=== PATIENT | female | born 1970 | race Caucasian/White ===

== ENCOUNTER 2021-07-29 11:34 | Outpatient (CLI) | payer BC, SELFPAY ==
[2021-07-29 11:46] LABS: Basophils Absolute Auto 0.05 K/mm3 (0.00-0.10); Basophils Percent Auto 0.9 % (0.0-1.0); Eosinophils Absolute Auto 0.16 K/mm3 (0.02-0.50); Eosinophils Percent Auto 2.9 % (1.0-6.0); Hematocrit 44.4 % (35.0-49.0); Immature Granulocyte Absolute 0.01 K/mm3 (0.00-0.00); Immature Granulocyte Percent A 0.2 % (0.0-0.0); Lymphocytes Absolute Auto 0.86 K/mm3 (1.10-4.50); Lymphocytes Percent Auto 15.4 % (18.0-42.0); Mean Corpuscular HGB Conc 33.8 g/dL (32.0-36.0); Mean Corpuscular Hemoglobin 36.2 pg (27.0-31.0); Mean Corpuscular Volume 107.2 fL (78.0-102.0); Mean Platelet Volume 9.6 fl (9.2-11.8); Monocytes Absolute Auto 0.46 K/mm3 (0.10-0.90); Monocytes Percent Auto 8.2 % (2.0-11.0); Neutrophils Percent Auto 72.4 % (50.0-70.0); Platelet Count Result 244 K/mm3 (150-420); Red Blood Count 4.14 M/mm3 (4.20-5.40); Red Cell Distribution Width 12.1 % (11.6-14.4); White Blood Count 5.6 K/mm3 (4.8-10.8)
[2021-07-29 12:20] LABS: Alanine Aminotransferase 119 U/L (14-59); Albumin Level 4.1 g/dL (3.4-5.0); Alkaline Phosphatase 62 U/L (46-116); Anion Gap 9 mmol/L (8-16); Aspartate Amino Transferase 109 U/L (15-37); Blood Urea Nitrogen 7 mg/dL (7-18); Calcium 9.3 mg/dL (8.5-10.1); Carbon Dioxide 29 mmol/L (21-32); Chloride 104 mmol/L (98-108); Cholesterol 269 mg/dL (0-200); Estimated Glomerular Filt Rate > 60; Glucose 107 mg/dL (70-99); HDL Direct 43 mg/dL (40-60); LDL Cholesterol Calculated 200 mg/dL (<130); Osmolality Calculated 292 mOsm/kg (285-295); Potassium 4.7 mmol/L (3.5-5.1); Sodium 142 mmol/L (136-145); Total Protein 6.9 g/dL (6.4-8.2); Triglycerides 130 mg/dL (0-150)
== END 2021-07-29 11:35 | disposition home or self-care (01) ==
LOC: CHSLAB 11:37
PROVIDERS: PCP Nurse Practitioner Family; Visit Provider Nurse Practitioner Family
DX: E78.5 Hyperlipidemia, unspecified (principal); I10 Essential (primary) hypertension
CPT/HCPCS: 36415; 80053; 80061; 85025

== ENCOUNTER 2022-01-26 01:25 | Day surgery (SDC) | payer BC, SELFPAY ==
[2022-01-14 14:15] VITALS: BMI 24.2
[2022-01-26 10:27] VITALS: BP 157/104; PULSE 100; RESP 16; TEMP 36.1; O2SAT 100; BMI 24.9
[2022-01-26] MEDS: LACTATED RINGERS 1,000 ML 150 ML IV CONT (10:30)
--- NOTE | 2022-01-26 11:10 | P.PNAN_ITS ---
Anes - Initial Pre Proc Eval Procedure: Operation Date: 01/26/22 11:00 Proposed Procedures p Screening Colonoscopy - Nicholas King MD Date/Time: 01/26/22 11:10 Surgeon: Nicholas King MD Pre Op Diagnosis: neoplasm screening Patient Data Age: 51 Gender: F Height: 1.68 m Weight: 70 kg Last Vital Signs Temp 96.9 F L 01/26/22 10:27 Pulse 100 01/26/22 10:27 Resp 16 01/26/22 10:27 BP 157/104 H 01/26/22 10:27 Pulse Ox 100 01/26/22 10:27 Allergies Allergy/AdvReac Type Severity Reaction Status Date / Time oxycodone Allergy Severe rash Verified 01/26/22 10:26 Home Medications Medication Instructions Recorded Confirmed Type loratadine 10 mg tablet 10 mg PO DAILY 10/13/19 01/14/22 History albuterol sulfate 90 mcg/actuation 2 puff INHALATION QID PRN #8.5 g 07/28/21 01/14/22 Rx aerosol inhaler lisinopril 5 mg tablet 5 mg PO DAILY #90 tablet 07/28/21 01/14/22 Rx multivitamin 1 tablet PO DAILY 07/28/21 01/14/22 History lovastatin 40 mg tablet 40 mg PO DAILY #90 tablet 07/30/21 Rx Patient hx anesthesia problems: none Family hx anesthesia problems: none Results Review: All pre-operative results and documents have been reviewed as part of the pre-operative evaluation. [facility], [facility] Past Medical History Medical History (Updated 07/28/21 @ 13:50 by Sofie Moreno NP) Anemia, unspecified Essential hypertension Fibroid uterus Fracture of thumb, left, closed GERD without esophagitis Hyperlipidemia Hypothyroidism Menometrorrhagia Surgical History Surgical History History of bilateral salpingectomy Hx of rotator cuff surgery Left shoulder S/P laparoscopic hysterectomy Family History Family History Mother Hypothyroidism Father Cancer Sibling Diabetes mellitus Social History Social History (Updated 07/28/21 @ 12:46 by Yanelis Molina MA) Smoking status: Never smoker Alcohol intake: current Drinks per week: 30 Alcohol use details: 5 glasses of wine daily Substance use: never Substance use type: does not use Living arrangements: with family Additional living arrangements comments: Additional occupation/education comments: housewife Gender identity (if verbalized by the patient): Female Spiritual care concerns: No Anes - Eval Final PreProcedure Day of Procedure 01/26/22 11:10 Patient weight: normal Heart: regular rate and rhythm Lungs: clear to auscultation Airway: Mallampati scale class II Neurological: alert and oriented Last oral intake: >/= 8 hours ASA classification: II Emergent: no Anesthetic plan: proceed Anesthesia type and monitoring: general GIVS and standard monitoring Results Review: All pre-operative results and documents have been reviewed as part of the pre-operative evaluation. Informed Consent: The patient's anesthetic plan and its attendant risks and benefits were discussed with the patient/family/POA. Questions were solicited and answers provided to the satisfaction of the patient/family/POA.
--- NOTE | 2022-01-26 11:11 | PM.HPGS ---
History of Present Illness History of Present Illness Consent: Risks, benefits, and alternatives have been discussed and questions answered. Patient agrees to proceed with procedure. Chief complaint: neoplasm screening Narrative: Daisy No is a 51 year old female here for first screening colonoscopy Review of Systems Constitutional: Constitutional: Denies headache(s) and Denies weakness Eyes: Eyes: Denies blurry vision ENT: Reports Normal hearing present, Denies headache(s) and Denies neck pain Cardiovascular: Cardiovascular: Denies chest pain and Denies dyspnea Respiratory: Respiratory: Denies dyspnea Gastrointestinal: Gastrointestinal: Reports no additional gastrointestinal complaints Genitourinary: Genitourinary: Denies dysuria Musculoskeletal: Musculoskeletal: Denies neck pain Integumentary/Breasts: Skin/Breast: Denies dry skin Neurologic: Reports Normal hearing present, Denies headache(s) and Denies weakness Psychiatric: Psychiatric: Denies anxiety Endocrine: Endocrine: Denies change in body appearance Hematologic/Lymphatic: Hematologic/Lymphatic: Denies easy bleeding Allergic/Immunologic: Allergic/Immunologic: Denies urticaria PMFSH Past Medical History Medical History (Updated 07/28/21 @ 13:50 by Sofie Moreno NP) Anemia, unspecified Essential hypertension Fibroid uterus Fracture of thumb, left, closed GERD without esophagitis Hyperlipidemia Hypothyroidism Menometrorrhagia Surgical History Surgical History History of bilateral salpingectomy Hx of rotator cuff surgery Left shoulder S/P laparoscopic hysterectomy Family History Family History Mother Hypothyroidism Father Cancer Sibling Diabetes mellitus Social History Social History (Updated 07/28/21 @ 12:46 by Yanelis Molina MA) Smoking status: Never smoker Alcohol intake: current Drinks per week: 30 Alcohol use details: 5 glasses of wine daily Substance use: never Substance use type: does not use Living arrangements: with family Additional living arrangements comments: Additional occupation/education comments: housewife Gender identity (if verbalized by the patient): Female Spiritual care concerns: No Meds Home Medications and Allergies Home Medications Medication Instructions Recorded Confirmed Type loratadine 10 mg tablet 10 mg PO DAILY 10/13/19 01/14/22 History albuterol sulfate 90 mcg/actuation 2 puff INHALATION QID PRN #8.5 g 07/28/21 01/14/22 Rx aerosol inhaler lisinopril 5 mg tablet 5 mg PO DAILY #90 tablet 07/28/21 01/14/22 Rx multivitamin 1 tablet PO DAILY 07/28/21 01/14/22 History lovastatin 40 mg tablet 40 mg PO DAILY #90 tablet 07/30/21 Rx Allergies Allergy/AdvReac Type Severity Reaction Status Date / Time oxycodone Allergy Severe rash Verified 01/26/22 10:26 Vital Signs Vital Signs - 24 hr 01/26/22 10:27 Temperature 96.9 F L Pulse Rate 100 Respiratory Rate 16 Blood Pressure 157/104 H Pulse Oximetry 100 Exam Const: General: comfortable and no acute distress HENMT: General nose exam: Normal nares present Eyes: General: appearance normal, both eyes and all related structures Neck: Neck: no JVD Resp: Auscultation: clear to auscultation bilaterally Cardio: Rate: regular rate Rhythm: regular rhythm GI: Inspection: non-distended GI Palp: Yes Soft to palpation Skin: General skin exam: normal color Neuro: General: gait normal Speech: normal speech Extrem: General: normal to inspection Psych: Mental Status: mental status grossly normal Assessment and Plan Assessment and plan (1) Screening for malignant neoplasm of colon: Code(s): Z12.11 - Encounter for screening for malignant neoplasm of colon Status: Acute Assessment and Plan: colonoscopy
[2022-01-26 11:42] VITALS: BP 118/77; PULSE 88; RESP 19; O2SAT 100
[2022-01-26 11:52] VITALS: BP 107/73; PULSE 69; RESP 21; O2SAT 100
[2022-01-26 12:02] VITALS: BP 115/82; PULSE 67; RESP 19; O2SAT 100
== END 2022-01-26 12:06 | disposition home or self-care (01) ==
PROVIDERS: PCP Nurse Practitioner Family; Visit Provider Internal Medicine Gastroenterology
PROC: 0DJD8ZZ Inspection of Lower Intestinal Tract, Via Natural or Artificial Opening Endoscopic (ICD-10-PCS; CPT 45378; principal; 2022-01-26 11:00)
DX: Z12.11 Encounter for screening for malignant neoplasm of colon (principal); C18.7 Malignant neoplasm of sigmoid colon; D12.4 Benign neoplasm of descending colon; D64.9 Anemia, unspecified; I10 Essential (primary) hypertension; K21.9 Gastro-esophageal reflux disease without esophagitis; E78.5 Hyperlipidemia, unspecified; E03.9 Hypothyroidism, unspecified; D25.9 Leiomyoma of uterus, unspecified; Z79.51 Long term (current) use of inhaled steroids
CPT/HCPCS: 45385; 88305; J2704; J7120

== ENCOUNTER 2022-06-12 10:56 | Outpatient (CLI) | payer BC, SELFPAY ==
[2022-06-12 18:52] LABS: Basophils Absolute Auto 0.1 K/mm3 (0.0-0.1); Basophils Percent Auto 0.9 % (0.2-1.2); Eosinophils Absolute Auto 0.2 K/mm3 (0-0.3); Eosinophils Percent Auto 3.6 % (0-4.4); Hematocrit 44.6 % (37.0-47.0); Hemoglobin 14.7 g/dL (12.0-15.0); Immature Granulocyte Absolute 0.02 K/mm3 (0.00-0.031); Immature Granulocyte Percent A 0.4 % (0-0.5); Lymphocytes Absolute Auto 0.89 K/mm3 (0.9-3.2); Lymphocytes Percent Auto 15.9 % (18.3-44.2); Mean Corpuscular Hemoglobin 33.6 pg (26-34); Mean Corpuscular Volume 101.8 fl (80-100); Monocytes Absolute Auto 0.5 K/mm3 (0.1-0.6); Monocytes Percent Auto 9.3 % (2.6-8.5); Neutrophils Absolute Auto 3.9 K/mm3 (1.3-6.7); Neutrophils Percent Auto 69.9 % (45.5-73.1); Platelet Count Result 214 k/mm3 (150-375); Red Blood Count 4.38 M/mm3 (4.2-5.4); Red Cell Distribution Width 12.3 % (11.5-14.5); White Blood Count 5.6 K/mm3 (4.5-10.0)
[2022-06-12 19:36] LABS: Alanine Aminotransferase 91 U/L (6-35); Albumin Level 4.5 g/dL (3.5-5.1); Alkaline Phosphatase 69 U/L (38-126); Anion Gap 12 mmol/L (8-16); Aspartate Amino Transferase 114 U/L (14-36); Bilirubin,Total 1.1 mg/dL (0.2-1.3); Blood Urea Nitrogen 9 mg/dL (7-17); Calcium 9.8 mg/dL (8.4-10.2); Carbon Dioxide 28 mmol/L (22-30); Chloride 98 mmol/L (98-107); Cholesterol 256 mg/dL (0-200); Estimated Glomerular Filt Rate > 60; Glucose 98 mg/dL (65-110); HDL Direct 52 mg/dL; Potassium 4.4 mmol/L (3.4-5.0); Sodium 138 mmol/L (137-145); Triglycerides 138 mg/dL (<150)
[2022-06-12 19:47] LABS: LDL Cholesterol Direct 180 mg/dL
[2022-06-12 19:52] LABS: Vitamin D 25 Hydroxy 66.6 ng/mL
== END 2022-06-12 10:57 | disposition home or self-care (01) ==
LOC: ANHGOSHLAB 10:57
PROVIDERS: PCP Nurse Practitioner Family; Visit Provider Family Medicine
DX: E78.5 Hyperlipidemia, unspecified (principal); I10 Essential (primary) hypertension; E55.9 Vitamin D deficiency, unspecified; E53.8 Deficiency of other specified B group vitamins; R73.9 Hyperglycemia, unspecified
CPT/HCPCS: 36415; 80053; 80061; 82306; 82607; 83036; 84443; 85025

== ENCOUNTER 2022-07-29 11:46 | Outpatient (CLI) | payer BC, SELFPAY ==
[2022-07-29 18:38] LABS: Alanine Aminotransferase 49 U/L (6-35); Albumin Level 4.6 g/dL (3.5-5.1); Alkaline Phosphatase 64 U/L (38-126); Anion Gap 16 mmol/L (8-16); Aspartate Amino Transferase 56 U/L (14-36); Bilirubin,Total 0.8 mg/dL (0.2-1.3); Blood Urea Nitrogen 8 mg/dL (7-17); Calcium 9.4 mg/dL (8.4-10.2); Carbon Dioxide 27 mmol/L (22-30); Chloride 101 mmol/L (98-107); Estimated Glomerular Filt Rate > 60; Glucose 92 mg/dL (65-110); Potassium 4.4 mmol/L (3.4-5.0); Sodium 144 mmol/L (137-145)
== END 2022-07-29 11:47 | disposition home or self-care (01) ==
LOC: ANHGOSHLAB 11:48
PROVIDERS: PCP Family Medicine; Visit Provider Family Medicine
DX: R79.89 Other specified abnormal findings of blood chemistry (principal)
CPT/HCPCS: 36415; 80053

== ENCOUNTER → 2022-08-20 12:48 | Outpatient (CLI) | payer BC, SELFPAY ==
--- NOTE | ~2022-08-20 | MM_ITS ---
EXAMINATION: MM screening jordan BI w dash HISTORY: Screening TECHNIQUE: Craniocaudal and mediolateral oblique 3-D tomosynthesis images were obtained and synthetic 2-D images were generated. CAD analysis was submitted and interpreted. COMPARISON: Comparison to multiple prior studies sequentially, with oldest reviewed study dated 10/02. BREAST PARENCHYMAL COMPOSITION: The breasts are heterogeneously dense, which may obscure small masses FINDINGS: There is no evidence of suspicious mass, calcification, or architectural distortion to sugg est malignancy in either breast. There has been no suspicious interval change. IMPRESSION: 1. No mammographic evidence of malignancy. 2. Recommend routine screening mammography in one year. BI-RADS Category 1: Negative Reviewed, dictated and finalized at location A.
== END ==
PROVIDERS: PCP Family Medicine; Visit Provider Family Medicine
DX: Z12.31 Encounter for screening mammogram for malignant neoplasm of breast (principal)
CPT/HCPCS: 77063; 77067

== ENCOUNTER → 2022-10-09 11:12 | Outpatient (CLI) | payer BC, SELFPAY ==
--- NOTE | ~2022-10-09 | US_ITS ---
US right upper quadrant INDICATION: Elevated liver function tests PROCEDURE: Realtime right upper abdominal ultrasound. COMPARISON: No prior studies for comparison. FINDINGS: The pancreas is normal without focal mass or pancreatic ductal dilation. Echotexture is in creased, consistent with fatty infiltration. There is normal directional flow in the portal vein. The gallbladder is normal without stones, gallbladder wall thickening or pericholecystic fluid. Comm on bile duct measures 4 mm. No sonographic Han's sign. IMPRESSION: 1: Hepatic steatosis. Reviewed, dictated and finalized at location A. NISTRATIVE SUPPORT ASSISTANT IMPRESSION: 1: Hepatic steatosis.
== END ==
PROVIDERS: PCP Family Medicine; Visit Provider Family Medicine
DX: R79.89 Other specified abnormal findings of blood chemistry (principal); K76.0 Fatty (change of) liver, not elsewhere classified
CPT/HCPCS: 36415; 76705; 80053; 80061

== ENCOUNTER 2022-10-09 11:29 | Outpatient (CLI) | payer BC, SELFPAY ==
[2022-10-09 19:33] LABS: Alanine Aminotransferase 56 U/L (6-35); Albumin Level 4.8 g/dL (3.5-5.1); Alkaline Phosphatase 59 U/L (38-126); Anion Gap 10 mmol/L (8-16); Aspartate Amino Transferase 62 U/L (14-36); Bilirubin,Total 0.7 mg/dL (0.2-1.3); Blood Urea Nitrogen 9 mg/dL (7-17); Calcium 9.9 mg/dL (8.4-10.2); Carbon Dioxide 30 mmol/L (22-30); Chloride 104 mmol/L (98-107); Cholesterol 216 mg/dL (0-200); Estimated Glomerular Filt Rate > 60; Glucose 95 mg/dL (65-110); HDL Direct 58 mg/dL; Potassium 4.4 mmol/L (3.4-5.0); Sodium 144 mmol/L (137-145); Triglycerides 135 mg/dL (<150)
[2022-10-09 19:44] LABS: LDL Cholesterol Direct 125 mg/dL
== END 2022-10-09 11:30 | disposition home or self-care (01) ==
LOC: ANHGOSHLAB 11:30
PROVIDERS: PCP Family Medicine; Visit Provider Family Medicine
DX: E78.5 Hyperlipidemia, unspecified (principal); I10 Essential (primary) hypertension; Z79.899 Other long term (current) drug therapy
CPT/HCPCS: 36415; 80053; 80061

== ENCOUNTER 2023-03-09 02:23 | Day surgery (SDC) | payer BC, SELFPAY ==
[2023-02-24 15:35] VITALS: BMI 23.1
[2023-03-09 08:38] VITALS: BP 161/91; PULSE 67; RESP 18; TEMP 36.1; O2SAT 99; BMI 23.7
[2023-03-09] MEDS: LACTATED RINGERS 1,000 ML 150 ML IV CONT (08:53)
--- NOTE | 2023-03-09 09:21 | WPDANESEPPF ---
Anes - Initial Pre Proc Eval Procedure: Operation Date: 03/09/23 10:00 Proposed Procedures p Colonoscopy - Nicholas King MD Date/Time: 03/09/23 09:21 Surgeon: Nicholas King MD Pre Op Diagnosis: hx colon ca Patient Data Age: 52 Gender: F Height: 1.68 m Weight: 66.7 kg Last Vital Signs Temp 97.0 F L 03/09/23 08:38 Pulse 67 03/09/23 08:38 Resp 18 03/09/23 08:38 BP 161/91 H 03/09/23 08:38 Pulse Ox 99 03/09/23 08:38 O2 Del Method Room Air 03/09/23 08:38 Allergies Allergy/AdvReac Type Severity Reaction Status Date / Time oxycodone Allergy Severe rash Verified 03/09/23 08:44 Home Medications Medication Instructions Recorded Confirmed Type loratadine 10 mg tablet (Allergy 10 mg PO DAILY 10/13/19 03/09/23 History Relief (loratadine)) albuterol sulfate 90 mcg/actuation 2 puff inhalation QID PRN 07/28/21 03/09/23 Rx aerosol inhaler (ProAir HFA) Shortness Of Breath #8.5 grams multivitamin 1 tablet PO DAILY 07/28/21 03/09/23 History omeprazole 20 mg capsule,delayed 20 mg PO DAILY PRN Heartburn 06/09/22 03/09/23 History release tumeric 100 mg-dre 150 mg-olive 1 cap PO .QD 10/06/22 03/09/23 History 50 mg-oreg 150 mg-caprylate capsule atorvastatin 20 mg tablet (Lipitor) 20 mg PO QHS #90 tabs 12/07/22 03/09/23 Rx ondansetron 4 mg disintegrating 4 mg PO Q8H PRN nausea and 02/10/23 03/09/23 Rx tablet vomiting #10 tabs Patient hx anesthesia problems: none Family hx anesthesia problems: none Results Review: All pre-operative results and documents have been reviewed as part of the pre-operative evaluation. [facility] Past Medical History Medical History Cancer of sigmoid Elevated LFTs Environmental allergies Essential hypertension Fibroid uterus Fracture of thumb, left, closed GERD without esophagitis History of colon cancer Hyperlipidemia Menometrorrhagia Vitamin B12 deficiency Surgical History Surgical History History of arthroscopic knee surgery (~1982) Right History of colon resection (~03/05/22) sigmoid resection History of surgical procedure on eye proper using laser (~2016) Right Hx of rotator cuff surgery (~08/08/15) Left shoulder S/P laparoscopic hysterectomy (~11/24/19) Family History Family History Mother Hypothyroidism Father Cancer Sibling Diabetes mellitus Social History Social History (System 01/21/23 @ 15:46 by Rowan Mark) Smoking status: Never smoker Alcohol intake: current Drinks per week: 25 Alcohol use details: wine nightly Substance use: never Substance use type: does not use Lack of Transportation: No Lack of Food: Never True Current Housing: I Have Housing Concerned About Future Housing: No Difficulty Paying Gas/Electric Bills: No Difficulty Paying for Meds: No Currently Unemployed: No Education: Master's Degree or Higher Difficulty w/ Childcare or Family Care: No Living arrangements: with family Additional living arrangements comments: Additional occupation/education comments: housewife Gender identity (if verbalized by the patient): Female Sexual Orientation (if Verbalized by the Patient): Straight or Heterosexual Spiritual care concerns: No Agree to blood products: Yes Anes - Eval Final PreProcedure Day of Procedure 03/09/23 09:22 Patient weight: normal Heart: regular rate and rhythm Lungs: clear to auscultation Airway: Mallampati scale class II Neurological: alert and oriented Last oral intake: >/= 8 hours ASA classification: III Emergent: no Anesthetic plan: proceed Anesthesia type and monitoring: general GIVS and standard monitoring Results Review: All pre-operative results and documents have been reviewed as part of the pre-operative evaluation.
--- NOTE | 2023-03-09 09:25 | PM.HPGS ---
History of Present Illness History of Present Illness Consent: Risks, benefits, and alternatives have been discussed and questions answered. Patient agrees to proceed with procedure. Chief complaint: hx colon ca Narrative: Daisy No is a 52 year old female 12/2021 found to have sigmoid cancer s/p surgery Review of Systems Constitutional: Constitutional: Denies headache(s) and Denies weakness Eyes: Eyes: Denies blurry vision ENT: Reports Normal hearing present, Denies headache(s) and Denies neck pain Cardiovascular: Cardiovascular: Denies chest pain and Denies dyspnea Respiratory: Respiratory: Denies dyspnea Gastrointestinal: Gastrointestinal: Reports no additional gastrointestinal complaints Genitourinary: Genitourinary: Denies dysuria Musculoskeletal: Musculoskeletal: Denies neck pain Integumentary/Breasts: Skin/Breast: Denies dry skin Neurologic: Reports Normal hearing present, Denies headache(s) and Denies weakness Psychiatric: Psychiatric: Denies anxiety Endocrine: Endocrine: Denies change in body appearance Hematologic/Lymphatic: Hematologic/Lymphatic: Denies easy bleeding Allergic/Immunologic: Allergic/Immunologic: Denies urticaria PMFSH Past Medical History Medical History Cancer of sigmoid Elevated LFTs Environmental allergies Essential hypertension Fibroid uterus Fracture of thumb, left, closed GERD without esophagitis History of colon cancer Hyperlipidemia Menometrorrhagia Vitamin B12 deficiency Surgical History Surgical History History of arthroscopic knee surgery (~1982) Right History of colon resection (~03/05/22) sigmoid resection History of surgical procedure on eye proper using laser (~2016) Right Hx of rotator cuff surgery (~08/08/15) Left shoulder S/P laparoscopic hysterectomy (~11/24/19) Family History Family History Mother Hypothyroidism Father Cancer Sibling Diabetes mellitus Social History Social History (System 01/21/23 @ 15:46 by Rowan Mark) Smoking status: Never smoker Alcohol intake: current Drinks per week: 25 Alcohol use details: wine nightly Substance use: never Substance use type: does not use Lack of Transportation: No Lack of Food: Never True Current Housing: I Have Housing Concerned About Future Housing: No Difficulty Paying Gas/Electric Bills: No Difficulty Paying for Meds: No Currently Unemployed: No Education: Master's Degree or Higher Difficulty w/ Childcare or Family Care: No Living arrangements: with family Additional living arrangements comments: Additional occupation/education comments: housewife Gender identity (if verbalized by the patient): Female Sexual Orientation (if Verbalized by the Patient): Straight or Heterosexual Spiritual care concerns: No Agree to blood products: Yes Meds Home Medications and Allergies Home Medications Medication Instructions Recorded Confirmed Type loratadine 10 mg tablet (Allergy 10 mg PO DAILY 10/13/19 03/09/23 History Relief (loratadine)) albuterol sulfate 90 mcg/actuation 2 puff inhalation QID PRN 07/28/21 03/09/23 Rx aerosol inhaler (ProAir HFA) Shortness Of Breath #8.5 grams multivitamin 1 tablet PO DAILY 07/28/21 03/09/23 History omeprazole 20 mg capsule,delayed 20 mg PO DAILY PRN Heartburn 06/09/22 03/09/23 History release tumeric 100 mg-dre 150 mg-olive 1 cap PO .QD 10/06/22 03/09/23 History 50 mg-oreg 150 mg-caprylate capsule atorvastatin 20 mg tablet (Lipitor) 20 mg PO QHS #90 tabs 12/07/22 03/09/23 Rx ondansetron 4 mg disintegrating 4 mg PO Q8H PRN nausea and 02/10/23 03/09/23 Rx tablet vomiting #10 tabs Allergies Allergy/AdvReac Type Severity Reaction Status Date / Time oxycodone Allergy Severe rash Verified
[2023-03-09 09:50] VITALS: BP 123/87; PULSE 84; RESP 22; O2SAT 97
[2023-03-09 10:00] VITALS: BP 134/92; PULSE 70; RESP 20; O2SAT 98
[2023-03-09 10:10] VITALS: BP 130/91; PULSE 72; RESP 20; O2SAT 100
== END 2023-03-09 10:18 | disposition home or self-care (01) ==
PROVIDERS: PCP Family Medicine; Visit Provider Internal Medicine Gastroenterology
PROC: 0DJD8ZZ Inspection of Lower Intestinal Tract, Via Natural or Artificial Opening Endoscopic (ICD-10-PCS; CPT 45378; principal; 2023-03-09 10:00)
DX: Z08 Encounter for follow-up examination after completed treatment for malignant neoplasm (principal); K63.5 Polyp of colon; Z85.038 Personal history of other malignant neoplasm of large intestine; Z98.0 Intestinal bypass and anastomosis status; Z90.49 Acquired absence of other specified parts of digestive tract; I10 Essential (primary) hypertension; K21.9 Gastro-esophageal reflux disease without esophagitis; E78.5 Hyperlipidemia, unspecified; Z79.51 Long term (current) use of inhaled steroids
CPT/HCPCS: 45385; 88305; J2704; J7120

== ENCOUNTER 2023-06-21 11:19 | Outpatient (CLI) | payer BC, SELFPAY ==
[2023-06-21 18:08] LABS: Basophils Absolute Auto 0.1 K/mm3 (0.0-0.1); Basophils Percent Auto 1.1 % (0.2-1.2); Eosinophils Absolute Auto 0.3 K/mm3 (0-0.3); Eosinophils Percent Auto 6.3 % (0-4.4); Hematocrit 43.2 % (37.0-47.0); Immature Granulocyte Absolute 0.02 K/mm3 (0.00-0.031); Immature Granulocyte Percent A 0.4 % (0-0.5); Lymphocytes Absolute Auto 0.83 K/mm3 (0.9-3.2); Lymphocytes Percent Auto 17.9 % (18.3-44.2); Mean Corpuscular HGB Conc 32.4 g/dl (32-36); Mean Corpuscular Hemoglobin 33.3 pg (26-34); Mean Corpuscular Volume 102.9 fl (80-100); Mean Platelet Volume 10.4 fl (7.4-10.4); Monocytes Absolute Auto 0.3 K/mm3 (0.1-0.6); Monocytes Percent Auto 7.3 % (2.6-8.5); Neutrophils Absolute Auto 3.1 K/mm3 (1.3-6.7); Platelet Count Result 215 k/mm3 (150-375); White Blood Count 4.6 K/mm3 (4.5-10.0)
[2023-06-21 18:27] LABS: Alanine Aminotransferase 108 U/L (6-35); Albumin Level 4.8 g/dL (3.5-5.1); Alkaline Phosphatase 73 U/L (38-126); Anion Gap 6 mmol/L (8-16); Aspartate Amino Transferase 150 U/L (14-36); Bilirubin,Total 0.7 mg/dL (0.2-1.3); Blood Urea Nitrogen 8 mg/dL (7-17); Calcium 9.4 mg/dL (8.4-10.2); Carbon Dioxide 31 mmol/L (22-30); Chloride 104 mmol/L (98-107); Cholesterol 214 mg/dL (0-200); Estimated Glomerular Filt Rate > 60; Glucose 93 mg/dL (65-110); HDL Direct 57 mg/dL; Potassium 4.6 mmol/L (3.4-5.0); Sodium 141 mmol/L (137-145); Triglycerides 115 mg/dL (<150)
[2023-06-21 18:37] LABS: LDL Cholesterol Direct 132 mg/dL
[2023-06-21 18:58] LABS: Vitamin D 25 Hydroxy 51.7 ng/mL
== END 2023-06-21 11:20 | disposition home or self-care (01) ==
LOC: ANHGOSHLAB 11:21
PROVIDERS: PCP Family Medicine; Visit Provider Family Medicine
DX: Z00.00 Encounter for general adult medical examination without abnormal findings (principal); I10 Essential (primary) hypertension; E53.8 Deficiency of other specified B group vitamins; E55.9 Vitamin D deficiency, unspecified; E78.5 Hyperlipidemia, unspecified
CPT/HCPCS: 36415; 80053; 80061; 82306; 82607; 84439; 84443; 84480; 85025

== ENCOUNTER 2023-08-26 08:43 | Outpatient (CLI) | payer BC, SELFPAY ==
[2023-08-26 19:43] LABS: Alanine Aminotransferase 33 U/L (6-35); Albumin Level 4.5 g/dL (3.5-5.1); Alkaline Phosphatase 58 U/L (38-126); Aspartate Amino Transferase 41 U/L (14-36); Bilirubin,Total 1.2 mg/dL (0.2-1.3)
== END 2023-08-26 08:44 | disposition home or self-care (01) ==
LOC: ANHGOSHLAB 08:44
PROVIDERS: PCP Family Medicine; Visit Provider Family Medicine
DX: R79.89 Other specified abnormal findings of blood chemistry (principal)
CPT/HCPCS: 36415; 80076

== ENCOUNTER 2023-09-09 08:08 | Outpatient (CLI) | payer BC, SELFPAY ==
--- NOTE | ~2023-09-09 | MM_ITS ---
EXAMINATION: MM screening jordan BI w dash HISTORY: Screening mammogram TECHNIQUE: Craniocaudal and mediolateral oblique 3-D tomosynthesis images were obtained and synthetic 2-D images were generated. CAD analysis was submitted and interpreted. COMPARISON: 08/20/2022, 10/20/2019 BREAST PARENCHYMAL COMPOSITION:The breasts are heterogeneously dense, which may obscure small masses. FINDINGS: No suspicious mass, calcification, or architectural distortion are identified in either monica ast to suggest malignancy. There has been no suspicious interval change. IMPRESSION: No mammographic evidence of malignancy. Recommend routine screening mammography in one year. BI-RADS Category 1: Negative Reviewed, dictated and finalized at location M.
== END 2023-09-09 08:09 | disposition home or self-care (01) ==
LOC: CHSIMG 08:09
PROVIDERS: PCP Family Medicine; Visit Provider Family Medicine
DX: Z12.31 Encounter for screening mammogram for malignant neoplasm of breast (principal)
CPT/HCPCS: 77063; 77067

== ENCOUNTER 2024-06-08 11:05 | Outpatient (CLI) | payer BC, SELFPAY ==
[2024-06-08 12:55] LABS: Basophils Absolute Auto 0.1 K/mm3 (0.0-0.1); Basophils Percent Auto 1.5 % (0.2-1.2); Eosinophils Absolute Auto 0.5 K/mm3 (0-0.3); Eosinophils Percent Auto 10.2 % (0-4.4); Hematocrit 43.2 % (37.0-47.0); Hemoglobin 14.5 g/dL (12.0-15.0); Immature Granulocyte Absolute 0.02 K/mm3 (0.00-0.031); Immature Granulocyte Percent A 0.4 % (0-0.5); Lymphocytes Absolute Auto 0.92 K/mm3 (0.9-3.2); Mean Corpuscular HGB Conc 33.6 g/dl (32-36); Mean Corpuscular Hemoglobin 33.5 pg (26-34); Mean Corpuscular Volume 99.8 fl (80-100); Mean Platelet Volume 10.2 fl (7.4-10.4); Monocytes Absolute Auto 0.4 K/mm3 (0.1-0.6); Monocytes Percent Auto 8.1 % (2.6-8.5); Neutrophils Absolute Auto 2.7 K/mm3 (1.3-6.7); Neutrophils Percent Auto 59.8 % (45.5-73.1); Platelet Count Result 233 k/mm3 (150-375); Red Blood Count 4.33 M/mm3 (4.2-5.4); Red Cell Distribution Width 12.8 % (11.5-14.5); White Blood Count 4.6 K/mm3 (4.5-10.0)
[2024-06-08 14:08] LABS: Vitamin D 25 Hydroxy 38.5 ng/mL
[2024-06-08 14:24] LABS: Alanine Aminotransferase 73 U/L (6-35); Albumin Level 4.9 g/dL (3.5-5.1); Alkaline Phosphatase 69 U/L (38-126); Anion Gap 11 mmol/L (4-12); Aspartate Amino Transferase 85 U/L (14-36); Bilirubin,Total 1.3 mg/dL (0.2-1.3); Blood Urea Nitrogen 10 mg/dL (7-17); Calcium 9.6 mg/dL (8.4-10.2); Carbon Dioxide 29 mmol/L (22-30); Chloride 102 mmol/L (98-107); Cholesterol 208 mg/dL (0-200); Estimated Glomerular Filt Rate > 60; Glucose 99 mg/dL (65-110); HDL Direct 66 mg/dL; Potassium 4.5 mmol/L (3.4-5.0); Sodium 142 mmol/L (137-145); Triglycerides 139 mg/dL (<150)
[2024-06-08 14:35] LABS: LDL Cholesterol Direct 118 mg/dL
== END 2024-06-08 11:06 | disposition home or self-care (01) ==
LOC: ANHGOSHLAB 11:06
PROVIDERS: PCP Family Medicine; Visit Provider Family Medicine
DX: E53.8 Deficiency of other specified B group vitamins (principal); I10 Essential (primary) hypertension; E78.5 Hyperlipidemia, unspecified; E55.9 Vitamin D deficiency, unspecified; Z00.00 Encounter for general adult medical examination without abnormal findings
CPT/HCPCS: 36415; 80053; 80061; 82306; 82607; 84443; 85025

== ENCOUNTER 2024-07-18 10:28 | Outpatient (CLI) | payer BC, SELFPAY ==
[2024-07-18 14:31] LABS: Alanine Aminotransferase 75 U/L (6-35); Albumin Level 4.4 g/dL (3.5-5.1); Alkaline Phosphatase 64 U/L (38-126); Anion Gap 9 mmol/L (4-12); Aspartate Amino Transferase 92 U/L (14-36); Bilirubin,Total 1.1 mg/dL (0.2-1.3); Blood Urea Nitrogen 9 mg/dL (7-17); Calcium 9.6 mg/dL (8.4-10.2); Carbon Dioxide 29 mmol/L (22-30); Chloride 101 mmol/L (98-107); Estimated Glomerular Filt Rate > 60; Glucose 96 mg/dL (65-110); Potassium 4.2 mmol/L (3.4-5.0); Sodium 139 mmol/L (137-145)
== END 2024-07-18 10:29 | disposition home or self-care (01) ==
LOC: ANHGOSHLAB 10:29
PROVIDERS: PCP Family Medicine; Visit Provider Family Medicine
DX: R79.89 Other specified abnormal findings of blood chemistry (principal); I10 Essential (primary) hypertension
CPT/HCPCS: 36415; 80053

== ENCOUNTER 2024-08-31 14:49 | Emergency (ER) | payer BC, SELFPAY ==
[2024-08-31 15:06] VITALS: BP 151/93; PULSE 75; RESP 16; TEMP 36.4; O2SAT 100
--- NOTE | 2024-08-31 15:17 | ED_ITS ---
HPI - URI/Sore Throat General Chief Complaint: Upper Respiratory Infection Stated Complaint: Sinus Infection Time Seen by Provider: 08/31/24 15:20 Source: patient, RN notes reviewed and old records reviewed Mode of arrival: ambulatory Limitations: no limitations History of Present Illness HPI Narrative: 53-year-old female to Express Care with complaint of sinus congestion and pressure, postnasal drainage, cough for 2.5 weeks. Patient states that symptoms began while traveling in [place]. Patient has attempted to treat with Sudafed and Mucinex. Patient denies shortness of breath, sore throat, chest pain, fe ashely, pertinent medical history. Patient able to tolerate fluids by mouth. Patient resting comfortably in exam room in no acute distress. Respirations even and nonlabored. Related Data Home Medications Medication Instructions Recorded Confirmed loratadine 10 mg tablet (Allergy 10 mg PO DAILY 10/13/19 06/13/24 Relief (loratadine)) multivitamin 1 tablet PO DAILY 07/28/21 06/13/24 omeprazole 20 mg capsule,delayed 20 mg PO DAILY PRN Heartburn 06/09/22 06/13/24 release turmeric 100 mg-dre 150 1 cap PO .QD 10/06/22 06/13/24 mg-olive 50 mg-oreg 150 mg-capryl capsule mecobalamin (vitamin B12) 1,000 1,000 mcg sublingual .QOD 06/15/23 06/13/24 mcg disintegrating tablet,sublingual Allergies Allergy/AdvReac Type Severity Reaction Status Date / Time oxycodone Allergy Severe rash Verified 06/13/24 12:58 Review of Systems Review of Systems: All systems reviewed & are unremarkable except as noted in HPI and below Constitutional: Constitutional: Reports no additional constitutional complaints Eyes: Eyes: Reports no additional eye complaints ENT: Reports as per HPI, Reports nasal congestion, Reports post nasal drip and Reports sinus pressure Cardiovascular: Cardiovascular: Reports no additional cardiovascular complaints, Denies chest pain and Denies dyspnea Respiratory: Respiratory: Reports no additional respiratory complaints, Reports change in phlegm color, Reports cough and Denies dyspnea Musculoskeletal: Musculoskeletal: Reports no additional musculoskeletal complaints Neurologic: Reports system reviewed and no additional complaints, except as documented Psychiatric: Psychiatric: Reports no additional psychiatric complaints PMFSH Past Medical History Medical History Cancer of sigmoid Elevated LFTs Environmental allergies Essential hypertension Fibroid uterus Fracture of thumb, left, closed GERD without esophagitis History of colon cancer Hyperlipidemia Menometrorrhagia Reactive airway disease Vitamin B12 deficiency Surgical History Surgical History History of arthroscopic knee surgery (~1982) Right History of colon resection (~03/05/22) sigmoid resection History of surgical procedure on eye proper using laser (~2016) Right Hx of rotator cuff surgery (~08/08/15) Left shoulder S/P laparoscopic hysterectomy (~11/24/19) Family History Family History Mother Hypothyroidism Father Cancer Sibling Diabetes mellitus Mother Family history of hypothyroidism Social History Social History Smoking status: Never smoker Alcohol intake: current Drinks per week: 25 Alcohol use details: wine nightly Substance use: never Substance use type: does not use Lack of Transportation: No Lack of Food: Never True Current Housing: I Have Housing Concerned About Future Housing: No Difficulty Paying Gas/Electric Bills: No Difficulty Paying for Meds: No Currently Unemployed: No Education: Master's Degree or Higher Difficulty w/ Childcare or Family Care: No Living arrangements: with family Additional living arrangements comments: Additional occupation/education comments: housewife Gender identity (if verbalized by the patient): Female Sexual Orientation (if Verbalized by the Patient): Straight or Heterosexual Spiritual care concerns: No Agree to blood products: Yes Comments At the time of my signature, I reviewed and agree with the nursing past medical, surgical, social, and family history. There is no relevant family hist ory pertinent to the patient complaint. Exam Const: General: cooperative, comfortable, no acute distress, well developed, alert, well groomed and well nourished Nutritional Appearance: well nourished Orientation/consciousness: patient oriented x3 Limitations: no limitations HENMT: Head: normal to inspection Ears: external ears normal and TM abnormal with fluid behind the TM bilateral Face/Nose/Sinus: Normal external nose present, Abnormal mucous membranes and turbinates present boggy and erythematous, normal facial exam, No erythema, No edema and sinus tenderness Face and sinus: normal facial exam, no erythema and no edema Mouth: Yes Normal oral and palatal mucosa present Throat: postnasal drainage ( Purulent) Eyes: General: appearance normal, both eyes and all related structures Neck: Neck: normal visual inspection, full ROM and no meningeal signs Lymphatic: no lymphadenopathy noted and no lymphedema noted Chest: Chest palpation & inspection: normal inspection of the chest Resp: Effort & Inspection: normal respiratory effort and able to speak in complete sentences Auscultation: clear to auscultation bilaterally Cardio: Jugular venous distension: no JVD Rate: regular rate Rhythm: regular rhythm Back/Spine/Pelvis: Cervical Spine: cervical ROM normal Skin: General skin exam: normal color, no rashes or lesions noted and turgor normal Neuro: General: patient oriented x3, gait normal, moves all extremities and no meningeal signs Speech: normal speech Gait exam (Neuro): Normal gait present Extrem: General: normal to inspection, full ROM and capillary refill normal Psych: Appearance: grossly normal and well kempt Course Course Emergency Course: Some parts of this dictation were generated by voice recognition software and may contain typographical and/or grammatical inaccuracies. Level of Care: Express Care Visit Vital Signs Vital signs: Vital Signs Temperature 36.4 C 08/31/24 15:06 Pulse Rate 75 08/31/24 15:06 Respiratory Rate 16 08/31/24 15:06 Blood Pressure 151/93 H 08/31/24 15:06 Pulse Oximetry 100 08/31/24 15:06 Temperature 36.4 C 08/31/24 15:06 Pulse Rate 75 08/31/24 15:06 Respiratory Rate 16 08/31/24 15:06 Blood Pressure 151/93 H 08/31/24 15:06 Pulse Oximetry 100 08/31/24 15:06 reviewed MDM - URI/Sore Throat MDM Narrative Medical decision making narrative: 53-year-old female to Express Care with complaint of sinus congestion and pressure, postnasal drainage, cough for 2.5 weeks. Patient states that symptoms began while traveling in [place]. Patient has attempted to treat with Sudafed and Mucinex. Patient denies shortness of breath, sore throat, chest pain, fever, pertinent medical history. Patient able to tolerate fluids by mouth. Patient resting comfortably in exam room in no acute distress. Respirations even and nonlabored. On exam, bilateral TMs with clear fluid. Posterior oropharynx erythematous with purulent postnasal drainage. Bilateral nares erythematous and boggy. Sinus tenderness. Findings consistent with bacterial sinusitis. Patient is sitting comfortably in exam room nontoxic in appearance. Patient appropriate for outpatient treatment and follow-up. Discharge instructions reviewed with patient, as well as provided in writing per nursing staff. The instructions also include specific and strict return/GO TO THE ER as well as f/u information. All questions have been answered, and the patient deny any further questions with discharge and discharge plan. Some parts of this dictation were generated by voice recognition software and may contain typographical and/or grammatical inaccuracies. Differential Diagnosis Differential diagnosis: Likely upper respiratory infection, croup, otitis media, sinusitis, viral infection, bronchitis, influenza and pharyngitis Discharge Plan Discharge Clinical Impression: Bacterial sinusitis Patient Disposition: Home, Self-Care Condition: Stable Instructions: Sinusitis (ED) Additional Instructions: -Alternate Tylenol and Motrin per package directions for fever or pain. -Antihistamine medication such as Benadryl at night and Zyrtec/Claritin/Rani during the day can help improve symptoms. -Use Flonase twice a day for 5 days then daily to help reduce the inflammation and dry up your sinuses. -You can also use Sudafed or Mucinex. Be sure to drink plenty of water with these medications at least 8 ounces with every dose and it is important to drink 8 to 10 glasses of water per day. Water is a natural decongestant -Eat and drink things that are easy to swallow, like tea or soup, or popsicles. -Oral rinses such as: Salt water gargles and/or may use topical anesthetic (eg. Chloraseptic spray) or lozenges to relieve dryness or throat pain). -Frequent hand washing or hand medical insurance verifier is one of the best ways to prevent spread of infection. -Using a vaporizer or humidifier at night will also help thin secretions and help with coughing up phlegm. -Follow up with primary care provider in 2-3 days if condition is not improving; or seek ER visit if you have trouble breathing, cannot drink enough fluids, have muffled voice, difficulty opening your mouth, or severe swelling. Prescriptions: New azithromycin 250 mg tablet 250 mg PO DAILY Qty: 6 0RF Rx Instructions: 250 mg orally. Take TWO tablets today, then one tablet daily for 4 days. methylprednisolone [Methylpred DP] 4 mg tablets,dose pack See Rx Instructions .ROUTE .COMPLEX Qty: 21 0RF Rx Instructions: for 6 days No Action omeprazole 20 mg capsule,delayed release(DR/EC) 20 mg PO DAILY PRN (Reason: Heartburn) mecobalamin (vitamin B12) 1,000 mcg tablet,disintegrating 1,000 mcg sublingual .QOD Rx Instructions: place tablet under tongue and allow to dissolve for at least30 secs before swallowing pvdoaams-qcrc-qzgor-oreg-capry 100 mg-150 mg- 50 mg-150 mg capsule 1 cap PO .QD atorvastatin [Lipitor] 40 mg tablet 40 mg PO QHS Qty: 100 3RF loratadine [Allergy Relief (loratadine)] 10 mg tablet 10 mg PO DAILY multivitamin Tablet 1 tablet PO DAILY albuterol sulfate [ProAir HFA] 90 mcg/actuation HFA aerosol inhaler 2 puff INHALATION QID PRN (Reason: Shortness Of Breath) Qty: 8.5 0RF Patient Comments: very rare use neomycin-polymyxin B-dexameth 3.5mg/mL-10,000 unit/mL-0.1 % drops,suspension 1 drp EACH EYE Q4H Qty: 5 0RF Follow-up/Referrals: Mely Bowling MD [Primary Care Provider] - Stand Alone Forms: Work/School Release IP
== END 2024-08-31 15:53 | disposition home or self-care (01) ==
PROVIDERS: Emergency Provider Nurse Practitioner Family; PCP Family Medicine
DX: J32.9 Chronic sinusitis, unspecified (principal); I10 Essential (primary) hypertension; K21.9 Gastro-esophageal reflux disease without esophagitis; E78.5 Hyperlipidemia, unspecified; E53.8 Deficiency of other specified B group vitamins; J45.909 Unspecified asthma, uncomplicated; Z85.038 Personal history of other malignant neoplasm of large intestine; Z90.49 Acquired absence of other specified parts of digestive tract
CPT/HCPCS: 99213; G0463

== ENCOUNTER 2024-11-15 14:40 | Outpatient (CLI) | payer BC, SELFPAY ==
--- NOTE | ~2024-11-15 | MM_ITS ---
EXAMINATION: MM screening [facility] BI w dash HISTORY: Screening mammogram TECHNIQUE: Craniocaudal and mediolateral oblique 3-D tomosynthesis images were obtained and synthetic 2-D images were generated. CAD analysis was submitted and interpreted. COMPARISON: 09/09/2023, 08/20/2022, 10/20/2019 BREAST PARENCHYMAL COMPOSITION:Dense: The breasts are heterogeneously dense, which may obscure small masses. FINDINGS: No suspicious mass, calcification, or architectural distortion are identified in either monica ast to suggest malignancy. There has been no suspicious interval change. IMPRESSION: No mammographic evidence of malignancy. Recommend routine screening mammography in one year. BI-RADS Category 1: Negative Reviewed, dictated and finalized at location . C TYPOGRAPHER
== END 2024-11-15 14:41 | disposition home or self-care (01) ==
PROVIDERS: PCP Family Medicine; Visit Provider Family Medicine
DX: Z12.31 Encounter for screening mammogram for malignant neoplasm of breast (principal)
CPT/HCPCS: 77063; 77067

== ENCOUNTER 2025-06-19 11:25 | Outpatient (CLI) | payer BC, SELFPAY ==
--- OUTSIDE RECORDS SUMMARY | 2025-06-19 11:57 | XMS_ITS | Clinical Summary ---
Author Organization [facility] Address [address] [place] [address] Care Team Providers Care Plan Examiner Name Role Phone Len Amezquita DO Primary Care Provider Nicholas Pelaez MD Unavailable + Maikel Sierra MD Unavailable [phone] Allergies Active Allergy Reactions Criticality Noted Date Comments Oxycodone Itching Low 02/10/2022 Medications lisinopriL (PRINIVIL,ZESTR IL) 5 mg tabletIndicatio ns:hypertension Take 1 tablet (5 mg total) by mouth nightly 01/14/2020 Active loratadine (CLARITIN) 10 mg tabletIndicatio ns:Allergic Rhinitis Take 1 tablet (10 mg total) by mouth nightly Active multivit-min/fe rrous fumarate (MULTI VITAMIN ORAL)Indication s:supplement Take 1 tablet by mouth nightly Active albuterol HFA (PROVENTIL HFA,VENTOLIN HFA,PROAIR HFA) 90 mcg/actuation inhalerIndicati ons:Acute Asthma Attack Inhale 2 puffs every 6 (six) hours as needed for wheezing Active omeprazole magnesium (PRILOSEC ORAL)Indication s:acid reflex Take 20 mg by mouth as needed Active ibuprofen (ADVIL,MOTRIN) 600 mg tabletIndicatio ns:Postoperativ e Acute Pain Take 1 tablet (600 mg total) by mouth every 8 (eight) hours as needed for pain 03/07/2022 Active HYDROcodone-abida taminophen (NORCO) 5-325 mg per tabletIndicatio ns:Pain Take 1 tablet by mouth every 6 (six) hours as needed for pain Do not exceed 3000mg (3g) of tylenol in 24 hours. 5 tablet 03/07/2022 Active acetaminophen 500 mg capsuleIndicati ons:Pain Take 2 capsules (1,000 mg total) by mouth every 8 (eight) hours as needed (pain) Do not exceed 3000mg (3g) of tylenol in 24h. 30 capsule 03/07/2022 Active Active Problems Problem Noted Date Diagnosed Date Colon cancer 03/05/2022 Malignant neoplasm of sigmoid colon 02/10/2022 Overview (02/10/2022): Added automatically from request for surgery [id number] Fracture of first metacarpal bone 07/30/2015 Arthralgia of shoulder 07/29/2015 Surgical History Surgery Date Site/Laterality Comments HYSTERECTOMY 11/01/2019 - 12/01/2019 ESOPHAGOGASTRODUODENOSCOPY 01/30/2011 - 02/28/2011 GERD COLONOSCOPY ROTATOR CUFF REPAIR 11/01/2015 - 10/31/2016 Left COLECTOMY 03/05/2022 Laparoscopic sigmoid colectomy Medical History Medical History Date Comments Colorectal polyps HTN (hypertension) Asthma GERD (gastroesophageal reflux disease) Family History Medical History Relation Name Comments Alcohol abuse Father Family history of alcoholism - (Added by TW Conv) Cancer Father Family history of malignant neoplasm - (Added by TW Conv) Anesthesia problems Neg Hx Relation Name Status Comments Father Social History Tobacco Use Types Packs/Day Years Used Date Smoking Tobacco: Never Smokeless Tobacco: Never AUDIT-C Answer Date Recorded Q1: How often do you have a drink containing alcohol? 4 or more times a week 02/23/2022 Q2: How many drinks containi ng alcohol do you have on a typical day when you are drinking? 5 or 6 Q3: How often do you have si x or more drinks on one occasion? Daily or almost daily 02/23/2022 Comments No Sex and Gender Information Value Date Recorded Sex Assigned at Not on file Legal Sex Female 1:22 PM [employer] Gender Identity Not on file Sexual Orientation Not on file Obstetrics History Last Filed Vital Signs Vital Sign Reading Time Taken Comments Blood Pressure 121/79 01/09/2024 11:28 AM CDT Pulse 93 01/09/2024 11:28 AM CDT Temperature 36.4 C (97.6 F) 01/09/2024 11:28 AM CDT Respiratory Rate 22 01/09/2024 11:28 AM CDT Oxygen Saturation 98% 01/09/2024 11:28 AM CDT Inhaled Oxygen Concentration - - Weight 65.8 kg (145 lb) 01/09/2024 11:28 AM CDT Height 167.6 cm (5' 6) 01/09/2024 11:28 AM CDT Body Mass Index 23.4 01/09/2024 11:28 AM CDT Plan of Treatment Health Maintenance Due Date Last Done Comments Breast Cancer Screening-Mammogram 1970 Colon Cancer Screening-Colonoscopy 1970 Depression Screening 1970 Hepatitis C Screening 1970 DTaP/Tdap/Td Vaccine (1 - Tdap) 1981 Hepatitis B Screening 1988 Regular Well Visit/Exam 18-64 1988 Zoster Vaccine (1 of 2) 2020 Covid-19 Vaccine (4 - 2023-2 5 season) 2024 08/29/2021, 01/04/2021, 12/14/2020 Influenza Vaccine (#1) 2025 , 08/17/2017, 10/27/2016 Pneumococcal vaccine <65 Aged Out No longer eligible based on patient's age to complete this topic [place] For more information, please contact: [phone] * Full Code (Latest Code Status on File) Date Activated Date Inactivated Comments 03/05/2022 4:39 PM 03/07/2022 7:31 PM * Full Code Date Activated Date Inactivated Comments 02/13/2022 7:38 AM 02/13/2022 1:45 PM Care Teams Plan Examiner Relationship Specialty Start Date End Date Len Amezquita DO [address] [place] [address] PCP - General Family Medicine 02/02/22 Nicholas Pelaez MD [address] [place] [address] Referring Physician Gastroenterology 02/02/22 Maikel Sierra MD [phone] [place] [address] Surgeon Colon and Rectal Surgery 02/10/22
--- OUTSIDE RECORDS SUMMARY | 2025-06-19 11:57 | XMS_ITS ---
Author Organization [facility] Address [address] [place] [address] Care Team Providers Care Fixture Repairer Fabricator Name Role Phone Len Amezquita DO Primary Care Provider Nicholas Pelaez MD Unavailable + Maikel Sierra MD Unavailable [phone] Active Problems Problem Noted Date Diagnosed Date Colon cancer 03/05/2022 Malignant neoplasm of sigmoid colon 02/10/2022 Overview (02/10/2022): Added automatically from request for surgery [id number] Fracture of first metacarpal bone 07/30/2015 Arthralgia of shoulder 07/29/2015 Current Treatment and Therapy Plans No current plan information found. Past Treatment and Therapy Plans No past plan information found. Lifetime Dose Tracking * Chemical Lifetime Dose Automatic Entry Manual Entr y DLP 748 mGycm 748 mGycm 0 mGycm
[2025-06-19 12:55] LABS: Hematocrit 41.7 % (37.0-47.0); Hemoglobin 13.9 g/dL (12.0-15.0); Immature Granulocyte Percent A 0.5 % (0-0.5); Lymphocytes Absolute Auto 0.87 K/mm3 (0.9-3.2); Mean Corpuscular HGB Conc 33.3 g/dl (32-36); Mean Corpuscular Hemoglobin 32.8 pg (26-34); Mean Corpuscular Volume 98.3 fl (80-100); Nucleated Red Blood Cells Absolute Auto 0.000 K/mm3 (0.0-0.012); Nucleated Red Blood Cells Perc 0.0 % (0.0-0.2); Platelet Count Result 208 k/mm3 (150-375); Red Blood Count 4.24 M/mm3 (4.2-5.4); White Blood Count 6.2 K/mm3 (4.5-10.0)
[2025-06-19 13:31] LABS: Alanine Aminotransferase 78 U/L (6-35); Albumin Level 4.8 g/dL (3.5-5.1); Alkaline Phosphatase 89 U/L (38-126); Anion Gap 9 mmol/L (4-12); Aspartate Amino Transferase 110 U/L (14-36); Bilirubin,Total 1.3 mg/dL (0.2-1.3); Blood Urea Nitrogen 9 mg/dL (7-17); Calcium 10.0 mg/dL (8.4-10.2); Carbon Dioxide 27 mmol/L (22-30); Chloride 106 mmol/L (98-107); Cholesterol 211 mg/dL (0-200); Estimated Glomerular Filt Rate > 60; Glucose 112 mg/dL (65-110); HDL Direct 58 mg/dL; Potassium 5.0 mmol/L (3.4-5.0); Sodium 142 mmol/L (137-145); Total Protein 7.8 g/dL (6.3-8.2); Triglycerides 126 mg/dL (<150)
[2025-06-19 14:22] LABS: Hemoglobin A1C 5.3 % (<5.7)
[2025-06-19 14:25] LABS: Vitamin B12 526.0 pg/mL (239-931)
[2025-06-19 17:01] LABS: Thyroid Stimulating Hormone Reflex 4.770 uIU/mL (0.465-4.68)
[2025-06-19 17:36] LABS: Free T4 Free Thyroxine Reflex 0.84 ng/dL (0.78-2.19)
[2025-06-19 19:55] LABS: Total Triiodothyronine (T3) 1.17 NG/ML (0.82-1.58)
== END 2025-06-19 11:26 | disposition home or self-care (01) ==
LOC: ANHGOSHLAB 11:26
PROVIDERS: PCP Family Medicine; Visit Provider Family Medicine
DX: E78.5 Hyperlipidemia, unspecified (principal); E53.8 Deficiency of other specified B group vitamins; Z00.00 Encounter for general adult medical examination without abnormal findings; I10 Essential (primary) hypertension; E55.9 Vitamin D deficiency, unspecified; R73.9 Hyperglycemia, unspecified
CPT/HCPCS: 36415; 80053; 80061; 82306; 82607; 83036; 84439; 84443; 84480; 85025